=== PATIENT | male | born 1985 | race Caucasian/White ===

== ENCOUNTER 2019-06-27 21:03 | Emergency (ER) | payer OTHER ==
[~2019-06-27] VITALS: Ht 180.3 cm; Wt 81.7 kg
[~2019-06-27 21:03] MED LIST: Amoxicillin500 MG PO; ESCI10 PO; Hydrocodone-Ap1 EA23 PO; IBUP800 PO; Norco 5-325 Ta1 EACH PO
== END 2019-06-28 02:01 | disposition left against medical advice (07) ==
LOC: ER 21:03
DX: Z53.21 Procedure and treatment not carried out due to patient leaving prior to being seen by health care provider (principal); K59.00 Constipation, unspecified; R53.1 Weakness